=== PATIENT | female | born 1980 | race African-American/Black ===

== ENCOUNTER 2016-07-23 20:16 | Emergency (ER) | payer MEDICAID, MEDICARE, OTHER ==
[~2016-07-23 20:16] MED LIST: Iopamidol 370 76% 100 ML VIAL ONE
[2016-07-23 21:34] LABS: ALT (SGPT) 17 U/L (0-55); AST (SGOT) 18 U/L (5-34); Albumin 4.2 g/dL (3.5-5.0); Alkaline Phosphatase 91 U/L (40-150); Anion Gap 14 mmol/L (10-20); BUN (Urea Nitrogen) 8 mg/dL (7.0-18.7); Bilirubin, Total 0.1 mg/dL (0.2-1.2); CK (CPK) 120 U/L (29-168); Calc. Creatinine Clearance 0 mL/min (70-130); Calcium 9.3 mg/dL (7.8-10.44); Carbon Dioxide 24 mmol/L (22-29); Chloride 107 mmol/L (98-107); Estimated GFR-MDRD Greater than 90; Globulin 3.8 g/dL (2.4-3.5); Glucose 93 mg/dL (70-105); Sodium 141 mmol/L (136-145)
[2016-07-23 22:13] LABS: #Basophils 0.1 thou/uL (0.0-0.2); #Lymphocytes 2.9 thou/uL (1.20-3.40); #Monocytes 0.4 thou/uL (0.11-0.59); #Neutrophils 3.2 thou/uL (1.40-6.50); %Lymphocytes 44.3 % (21.0-51.0); %Monocytes 6.1 % (0.0-10.0); %Neutrophils 48.6 % (42.0-75.0); Hemoglobin 9.6 g/dL (12.0-16.0); Mean Corpuscular Hemoglobin 22.2 pg (27.0-31.0); Mean Corpuscular Volume 71.6 fl (81.0-99.0); Mean Platelet Volume 5.9 fL (7.4-10.4); Platelet Count 266 thou/uL (130-400); RBC Distribution Width 16.6 % (11.5-14.5); Red Blood Cell (RBC) Count 4.32 mill/uL (4.20-5.40); White Blood Cell (WBC) Count 6.6 thou/uL (4.8-10.8)
[2016-07-23] MEDS ORDERED: HYDROcodone/Acetaminophen 5/325 mg Tablet ONE (22:29)
[2016-07-23] MEDS ORDERED: predniSONE 20 MG TAB ONE (22:30)
--- NOTE | 2016-07-23 23:35 | CT ---
CTA CHEST 07/23/16 HISTORY: 35-year-old with history of thymic tumor. Contrast enhanced CTA of the chest is performed. 2D and 3D reconstruction images performed on an [employer] 3D workstation. Images are compared to previous CT of the chest from 10/24/15. Images again demonstrate a left pericardial mass measuring approximately 3.4 x 2.4 cm, not significa ntly changed since the previous exam. Measurements of a pericardial mass. There is a second more superior pericardial mass and hilar mass. This upper hilar mass has increased in size, now measuring 6.8 x 3.9 cm compared to previous measured 5.9 x 3.1 cm. No evidence of fill ing defect seen in the pulmonary arteries to suggest pulmonary emboli. Some mild infracarinal lympha denopathy is again seen also unchanged since the previous exam. IMPRESSION: Left upper hilar and multifocal pericardial masses. The left upper hilar AP window mass is larger th an on the previous exam. The pericardial masses are not significantly changed. All of these are sign ificantly larger than on the previous comparison CT from 12/17/13. POS: [facility]
== END 2016-07-24 00:46 | disposition short-term general hospital (02) ==
LOC: NAV ERS 20:16
DX: R22.2 Localized swelling, mass and lump, trunk (principal); J45.909 Unspecified asthma, uncomplicated; Z87.891 Personal history of nicotine dependence; Z79.891 Long term (current) use of opiate analgesic; Z79.52 Long term (current) use of systemic steroids; Z79.899 Other long term (current) drug therapy
CPT/HCPCS: 71275; 80053; 82550; 85025; 93005; 94760; J7506

== ENCOUNTER 2016-08-13 22:11 | Emergency (ER) | payer MEDICARE, MEDICAID ==
--- NOTE | 2016-08-13 23:00 | RAD ---
AP VIEW OF THE CHEST: 08/13/16 INDICATION: History of thymic cancer and chest pain. IMPRESSION: Left sided mediastinal masses are stable. Sternotomy changes are similar. Right IJ chest wall port i s stable. Right lung is clear. No pleural effusion, or pneumothorax is evident. No acute osseous abn ormality is noted. POS: [facility]
[2016-08-13] MEDS ORDERED: Sodium Chloride 0.9% 1,000 ML ONE (23:04)
[2016-08-13] MEDS ORDERED: Ondansetron HCl/PF 4 MG/2 ML Vial ONE (23:04)
[2016-08-13 23:05] LABS: ALT (SGPT) 12 U/L (0-55); AST (SGOT) 23 U/L (5-34); Albumin 3.7 g/dL (3.5-5.0); Alkaline Phosphatase 155 U/L (40-150); Anion Gap 15 mmol/L (10-20); BUN (Urea Nitrogen) 9 mg/dL (7.0-18.7); Bilirubin, Total 0.1 mg/dL (0.2-1.2); Calc. Creatinine Clearance 0 mL/min (70-130); Calcium 8.7 mg/dL (7.8-10.44); Carbon Dioxide 20 mmol/L (22-29); Chloride 108 mmol/L (98-107); Estimated GFR-MDRD Greater than 90; Globulin 3.4 g/dL (2.4-3.5); Glucose 130 mg/dL (70-105); Potassium 4.1 mmol/L (3.5-5.1); Protein, Total 7.1 g/dL (6.0-8.3); Sodium 139 mmol/L (136-145)
[2016-08-13 23:07] LABS: Troponin I 0.062 ng/mL (< 0.028)
[2016-08-13 23:21] LABS: CKMB 1.4 ng/mL (0-6.6)
[2016-08-13 23:27] LABS: #Basophils 0.1 thou/uL (0.0-0.2); #Lymphocytes 2.2 thou/uL (1.20-3.40); #Neutrophils 8.8 thou/uL (1.40-6.50); %Lymphocytes 17.9 % (21.0-51.0); %Monocytes 8.2 % (0.0-10.0); Hemoglobin 9.4 g/dL (12.0-16.0); Hypochromia MODERATE=16-30 cells (100X) (0-5/hpf); MDiff Complete? YES; Mean Corpuscular HGB CONC 30.4 g/dL (32.0-36.0); Mean Corpuscular Hemoglobin 21.4 pg (27.0-31.0); Mean Corpuscular Volume 70.4 fl (81.0-99.0); Mean Platelet Volume 6.5 fL (7.4-10.4); Microcytosis MODERATE=15-30 cells (100X) (0-5/hpf); PLT Morphology Comment Appears Adequate; Platelet Count 395 thou/uL (130-400); RBC Distribution Width 16.9 % (11.5-14.5); Red Blood Cell (RBC) Count 4.39 mill/uL (4.20-5.40); White Blood Cell (WBC) Count 12.1 thou/uL (4.8-10.8)
[2016-08-14] MEDS ORDERED: Lorazepam 2 MG/ML VIAL ONE
--- NOTE | 2016-08-14 00:02 | CT ---
CTA OF THE THORAX Utilizing IV contrast, PE protocol and 3D reformatted imaging. 08/13/16 COMPARISON: Prior exam dated 07/23/16. FINDINGS: Left sided mediastinal, hilar and pericardial masses are likely stable when accounting for different planes of imaging. The largest is seen within the left aspect of the superior mediastinum measurin g 7.6 x 4.2 cm where it measured 6.8 x 3.9 cm on the prior exam. The lesion along the left heart bor saúl measures 4.7 cm on today's exam whereas it measured 4.8 cm on the prior. Surgical changes of the upper chest are similar. No definite central or segmental pulmonary embolus is evident. No confluen t air space opacity or pleural effusion is noted. There is some subsegmental atelectasis within the right lower lobe. The right chest wall port is stable. No acute osseous abnormality is evident. IMPRESSION: 1. Stable left mediastinal, hilar, and pericardial masses likely related to thymus malignancy. 2. No central or segmental pulmonary embolus. POS: [facility]
[2016-08-14] MEDS ORDERED: Nitroglycerin 2% Ointment 1 INCH/1 GM Packet ONE (00:18)
== END 2016-08-14 01:00 | disposition short-term general hospital (02) ==
LOC: NAV ERS 22:11
DX: R07.9 Chest pain, unspecified (principal); R79.1 Abnormal coagulation profile; J45.909 Unspecified asthma, uncomplicated; Z87.891 Personal history of nicotine dependence; Z79.899 Other long term (current) drug therapy
CPT/HCPCS: 71010; 71275; 80053; 82553; 83880; 84484; 85025; 93005; 96361; 96374; 96375; J2060; J2270; J2405; J7050

== ENCOUNTER 2017-02-12 20:15 | Emergency (ER) | payer MEDICARE, MEDICAID ==
[2017-02-12] MEDS ORDERED: Dexamethasone 20 MG/5 ML VIAL ONE (20:30)
[2017-02-12] MEDS ORDERED: Ketorolac Tromethamine 60 MG/2 ML VIAL ONE (20:30)
[2017-02-12] MEDS ORDERED: Clindamycin 150 MG CAP ONE (20:31)
== END 2017-02-12 21:05 | disposition home or self-care (01) ==
LOC: NAV ERS 20:15
DX: K02.9 Dental caries, unspecified (principal); J45.909 Unspecified asthma, uncomplicated; Z87.891 Personal history of nicotine dependence
CPT/HCPCS: 96372; J1100; J1885

== ENCOUNTER 2017-02-20 14:04 | Emergency (ER) | payer MEDICARE, MEDICAID ==
--- NOTE | 2017-02-20 15:31 | CT ---
CT BRAIN: DATE: 02/20/17. PROVIDED CLINICAL HISTORY: Left-sided facial tingling. FINDINGS: Comparison is made with the study dated 10/08/10. The ventricular system appears normal in size and m orphology. There is no evidence for intracranial hemorrhage or mass effect. The extracranial soft tissues and osseous structures demonstrate an unremarkable CT appearance. [id number] diminished attenuation is seen within the cerebral white matter about the posterior horn of the left lateral ve ntricle potentially on the basis of chronic microvascular ischemic change. IMPRESSION: No evidence for intracranial hemorrhage or mass effect. POS: [facility]
[2017-02-20 16:10] LABS: CKMB 1.9 ng/mL (0-6.6); Troponin I Less than 0.010 ng/mL (< 0.028)
[2017-02-20 16:12] LABS: #Lymphocytes 2.6 thou/uL (1.20-3.40); #Monocytes 0.6 thou/uL (0.11-0.59); #Neutrophils 6.2 thou/uL (1.40-6.50); %Basophils 0.4 % (0.0-1.0); %Lymphocytes 27.8 % (21.0-51.0); %Monocytes 5.9 % (0.0-10.0); %Neutrophils 65.9 % (42.0-75.0); Hemoglobin 10.2 g/dL (12.0-16.0); Mean Corpuscular HGB CONC 29.6 g/dL (32.0-36.0); Mean Corpuscular Hemoglobin 22.7 pg (27.0-31.0); Mean Corpuscular Volume 76.5 fl (81.0-99.0); Mean Platelet Volume 6.9 fL (7.4-10.4); Platelet Count 291 thou/uL (130-400); RBC Distribution Width 16.5 % (11.5-14.5); Red Blood Cell (RBC) Count 4.51 mill/uL (4.20-5.40); White Blood Cell (WBC) Count 9.4 thou/uL (4.8-10.8)
[2017-02-20 16:13] LABS: Hypochromia MODERATE=16-30 cells (100X) (0-5/hpf); MDiff Complete? YES; Ovalocytes SLIGHT = 2-5 cells (100X) (0-1/hpf); PLT Morphology Comment Appears Adequate; Poikilocytosis SLIGHT = 6-15 cells (100X) (0-5/hpf); Tear Drops SLIGHT = 2-5 cells (100X) (0-1/hpf)
[2017-02-20 16:17] LABS: ALT (SGPT) 8 U/L (8-55); AST (SGOT) 10 U/L (5-34); Albumin 3.8 g/dL (3.5-5.0); Alkaline Phosphatase 98 U/L (40-150); Anion Gap 12 mmol/L (10-20); BUN (Urea Nitrogen) 11 mg/dL (7.0-18.7); Bilirubin, Total 0.1 mg/dL (0.2-1.2); Calc. Creatinine Clearance 0 mL/min (70-130); Calcium 8.9 mg/dL (7.8-10.44); Carbon Dioxide 24 mmol/L (22-29); Chloride 107 mmol/L (98-107); Estimated GFR-MDRD Greater than 90; Globulin 3.7 g/dL (2.4-3.5); Glucose 88 mg/dL (70-105); Potassium 3.7 mmol/L (3.5-5.1); Protein, Total 7.5 g/dL (6.0-8.3); Sodium 139 mmol/L (136-145)
== END 2017-02-20 17:42 | disposition home or self-care (01) ==
LOC: NAV ERS 14:04
DX: G43.909 Migraine, unspecified, not intractable, without status migrainosus (principal); J45.909 Unspecified asthma, uncomplicated; D57.1 Sickle-cell disease without crisis; Z87.891 Personal history of nicotine dependence
CPT/HCPCS: 36415; 70450; 80053; 82553; 84484; 85025; 93005

== ENCOUNTER 2017-04-24 08:02 | Emergency (ER) | payer MEDICARE, MEDICAID ==
--- NOTE | 2017-04-24 09:25 | RAD ---
CHEST 2 VIEWS: Date: 04/24/17 COMPARISON: Chest radiograph dated 2012, as well as CT angiogram of chest dated 08/13/16. FINDINGS: Port-A-Cath tip at the cavoatrial junction. There is marked lobular appearance to the middle mediasti num obscuring the aortic knob and left hilum. No pneumothorax. No large effusion. IMPRESSION: Continued left mediastinal masses are similar in size since the comparison examination. No acute intr athoracic abnormality. POS: [facility]
== END 2017-04-24 09:10 | disposition home or self-care (01) ==
LOC: NAV ERS 08:02
DX: J11.1 Influenza due to unidentified influenza virus with other respiratory manifestations (principal); J45.909 Unspecified asthma, uncomplicated; D57.1 Sickle-cell disease without crisis; Z85.238 Personal history of other malignant neoplasm of thymus; Z87.891 Personal history of nicotine dependence; Z79.891 Long term (current) use of opiate analgesic; Z79.899 Other long term (current) drug therapy
CPT/HCPCS: 71020

== ENCOUNTER 2019-03-18 16:59 | Emergency (ER) | payer MEDICARE, MEDICAID ==
[2019-03-18] MEDS ORDERED: Dexamethasone 4 mg/ml Vial ONE (17:30)
[2019-03-18 18:01] LABS: #Lymphocytes 0.7 thou/uL (1.20-3.40); #Monocytes 0.3 thou/uL (0.11-0.59); #Neutrophils 15.4 thou/uL (1.40-6.50); %Basophils 0.2 % (0.0-1.0); %Lymphocytes 4.2 % (21.0-51.0); %Monocytes 1.6 % (0.0-10.0); Mean Corpuscular HGB CONC 29.9 g/dL (32.0-36.0); Mean Corpuscular Hemoglobin 24.4 pg (27.0-31.0); Mean Corpuscular Volume 81.7 fL (78.0-98.0); Platelet Count 485 thou/uL (130-400); RBC Distribution Width 14.9 % (11.5-14.5); White Blood Cell (WBC) Count 16.4 thou/uL (4.8-10.8)
[2019-03-18 18:15] LABS: Anion Gap 14 mmol/L (10-20); BUN (Urea Nitrogen) 10 mg/dL (7.0-18.7); Calc. Creatinine Clearance 0 mL/min (70-130); Calcium 9.7 mg/dL (7.8-10.44); Carbon Dioxide 24 mmol/L (22-29); Chloride 104 mmol/L (98-107); Estimated GFR-MDRD Greater than 90; Glucose 122 mg/dL (70-105); Potassium 4.1 mmol/L (3.5-5.1); Sodium 138 mmol/L (136-145)
--- NOTE | 2019-03-18 18:34 | RAD ---
CHEST ONE VIEW: 03/18/19 COMPARISON: 08/13/16, 04/24/17. HISTORY: Dyspnea. FINDINGS: Complete opacification of the left hemithorax. Hyperinflation of the right lung. Right sided Mediport catheter is noted. Sternotomy wires identified. IMPRESSION: Complete opacification of the left hemithorax. Further evaluation with chest CT is recommended. Resul ts of the study conveyed to Dr. Conn, 03/18/19 at 6:29 p.m. Code CR POS: [facility]
== END 2019-03-18 18:45 | disposition home or self-care (01) ==
LOC: NAV ERS 16:59
DX: G70.00 Myasthenia gravis without (acute) exacerbation (principal); J45.909 Unspecified asthma, uncomplicated; Z85.238 Personal history of other malignant neoplasm of thymus
CPT/HCPCS: 71045; 80048; 85025; J1100

== ENCOUNTER 2019-03-24 21:03 | Emergency (ER) | payer MEDICARE, MEDICAID ==
--- NOTE | 2019-03-24 21:50 | RAD ---
EXAM: Chest one view: HISTORY: Cough, congestion, shortness of breath COMPARISON: 03/18/2019 FINDINGS: Again noted is essentially complete opacification of the left chest. Heart size: Appears enlarged although is difficult to assess because of the large pleural effusion. Stable right subclavian catheter injection port. Lungs: Clear of acute process. No confluent pneumonia. Stable exam. IMPRESSION: No significant new process.
[2019-03-24 21:54] LABS: Anisocytosis SLIGHT = 6-15 cells (100X) (0-5/hpf); Band 1 % (5-11); Eosinophils 1 % (0-10); Hemoglobin 10.2 g/dL (12.0-16.0); Lymphocytes 13 % (21-51); MDiff Complete? YES; Mean Corpuscular HGB CONC 29.9 g/dL (32.0-36.0); Mean Corpuscular Hemoglobin 24.4 pg (27.0-31.0); Mean Corpuscular Volume 81.6 fL (78.0-98.0); Mean Platelet Volume 6.5 fL (7.4-10.4); Microcytosis SLIGHT = 6-15 cells (100X) (0-5/hpf); Neutrophil 85 % (42-75); Ovalocytes SLIGHT = 2-5 cells (100X) (0-1/hpf); Platelet Count 430 thou/uL (130-400); Platelet Morphology Comment Appears Adequate; RBC Distribution Width 15.6 % (11.5-14.5); Red Blood Cell (RBC) Count 4.17 mill/uL (4.20-5.40); White Blood Cell (WBC) Count 17.4 thou/uL (4.8-10.8)
[2019-03-24 21:55] LABS: ALT (SGPT) 13 U/L (8-55); AST (SGOT) 13 U/L (5-34); Albumin 3.8 g/dL (3.5-5.0); Alkaline Phosphatase 70 U/L (40-110); Anion Gap 15 mmol/L (10-20); BUN (Urea Nitrogen) 11 mg/dL (7.0-18.7); Bilirubin, Total 0.2 mg/dL (0.2-1.2); CK (CPK) 139 U/L (29-168); Calc. Creatinine Clearance 0 mL/min (70-130); Calcium 9.4 mg/dL (7.8-10.44); Carbon Dioxide 24 mmol/L (22-29); Chloride 104 mmol/L (98-107); Estimated GFR-MDRD Greater than 90; Globulin 3.4 g/dL (2.4-3.5); Glucose 99 mg/dL (70-105); Potassium 4.1 mmol/L (3.5-5.1); Protein, Total 7.2 g/dL (6.0-8.3); Sodium 139 mmol/L (136-145)
[2019-03-24] MEDS ORDERED: Azithromycin 250 MG TAB ONE (23:21)
[2019-03-24 23:23] LABS: Bilirubin Negative (Negative); Blood, Urine Trace (Negative); Clarity Clear (Clear); Glucose, Urine (Dipstick) Negative (Negative); Leukocyte Negative (Negative); Nitrite Negative (Negative); Protein, Urine (Dipstick) Negative (Neg-Trace); Urobilinogen 0.2 mg/dL (Less than 2)
[2019-03-24 23:25] LABS: Bacteria/HPF None Seen HPF (None Seen); RBC/HPF 0-3 HPF (0-3); Squamous Epithelial 0-3 HPF (0-3); WBC/HPF None Seen HPF (0-3)
== END 2019-03-25 00:07 | disposition home or self-care (01) ==
LOC: NAV ERS 21:03
DX: J45.909 Unspecified asthma, uncomplicated (principal); G70.00 Myasthenia gravis without (acute) exacerbation; J32.9 Chronic sinusitis, unspecified; B96.89 Other specified bacterial agents as the cause of diseases classified elsewhere; C37 Malignant neoplasm of thymus; D57.1 Sickle-cell disease without crisis; F41.9 Anxiety disorder, unspecified; Z79.899 Other long term (current) drug therapy; Z79.52 Long term (current) use of systemic steroids
CPT/HCPCS: 36415; 71045; 80053; 81003; 81015; 82550; 83605; 83880; 84484; 85025; 87040; 87804; 93005; 94640; 94760; J7620

== ENCOUNTER 2019-04-24 19:27 | Emergency (ER) | payer MEDICARE, OTHER ==
--- NOTE | 2019-04-24 20:28 | RAD ---
CHEST TWO VIEWS: 04/24/19 HISTORY: Dyspnea. COMPARISON: 03/24/19 study. Post left sided pneumonectomy changes are noted. Post sternotomy changes are present. A right Medipor t catheter is in place. IMPRESSION: Stable chest. POS: [facility]
[2019-04-24 20:38] LABS: Hemoglobin 10.2 g/dL (12.0-16.0); Mean Corpuscular HGB CONC 29.3 g/dL (32.0-36.0); Mean Corpuscular Hemoglobin 23.7 pg (27.0-31.0); Mean Corpuscular Volume 80.9 fL (78.0-98.0); Mean Platelet Volume 6.5 fL (7.4-10.4); Platelet Count 389 thou/uL (130-400); RBC Distribution Width 16.9 % (11.5-14.5)
[2019-04-24 20:40] LABS: #Lymphocytes 1.3 thou/uL (1.20-3.40); #Monocytes 0.5 thou/uL (0.11-0.59); #Neutrophils 8.2 thou/uL (1.40-6.50); %Basophils 0.3 % (0.0-1.0); %Lymphocytes 13.1 % (21.0-51.0); %Monocytes 4.6 % (0.0-10.0)
[2019-04-24 20:48] LABS: ALT (SGPT) 16 U/L (8-55); AST (SGOT) 14 U/L (5-34); Albumin 3.8 g/dL (3.5-5.0); Alkaline Phosphatase 101 U/L (40-110); Anion Gap 16 mmol/L (10-20); BUN (Urea Nitrogen) 11 mg/dL (7.0-18.7); Bilirubin, Total 0.1 mg/dL (0.2-1.2); Calc. Creatinine Clearance 0 mL/min (70-130); Calcium 8.9 mg/dL (7.8-10.44); Carbon Dioxide 21 mmol/L (22-29); Chloride 109 mmol/L (98-107); Estimated GFR-MDRD Greater than 90; Globulin 3.1 g/dL (2.4-3.5); Glucose 143 mg/dL (70-105); Potassium 3.6 mmol/L (3.5-5.1); Protein, Total 6.9 g/dL (6.0-8.3); Sodium 142 mmol/L (136-145)
== END 2019-04-24 21:30 | disposition home or self-care (01) ==
LOC: NAV ERS 19:27
DX: J06.9 Acute upper respiratory infection, unspecified (principal); F41.9 Anxiety disorder, unspecified; J45.909 Unspecified asthma, uncomplicated; G70.00 Myasthenia gravis without (acute) exacerbation; D57.3 Sickle-cell trait; Z85.238 Personal history of other malignant neoplasm of thymus; Z79.51 Long term (current) use of inhaled steroids; Z79.899 Other long term (current) drug therapy
CPT/HCPCS: 71046; 80053; 85025; 87804; 94640; J7620

== ENCOUNTER 2019-05-20 03:29 | Emergency (ER) | payer MEDICARE, OTHER ==
[2019-05-20 04:07] LABS: #Lymphocytes 2.3 thou/uL (1.20-3.40); #Monocytes 0.5 thou/uL (0.11-0.59); %Basophils 0.3 % (0.0-1.0); %Eosinophils 0.1 % (0.0-10.0); %Lymphocytes 23.4 % (21.0-51.0); %Monocytes 5.4 % (0.0-10.0); %Neutrophils 70.7 % (42.0-75.0); Hemoglobin 8.5 g/dL (12.0-16.0); Hypochromia SLIGHT = 6-15 cells (100X) (0-5/hpf); MDiff Complete? YES; Mean Corpuscular HGB CONC 29.4 g/dL (32.0-36.0); Mean Corpuscular Hemoglobin 23.1 pg (27.0-31.0); Mean Corpuscular Volume 78.5 fL (78.0-98.0); Mean Platelet Volume 6.6 fL (7.4-10.4); Ovalocytes SLIGHT = 2-5 cells (100X) (0-1/hpf); Platelet Count 379 thou/uL (130-400); Platelet Morphology Comment Appears Adequate; RBC Distribution Width 17.2 % (11.5-14.5); Red Blood Cell (RBC) Count 3.67 mill/uL (4.20-5.40); White Blood Cell (WBC) Count 9.9 thou/uL (4.8-10.8)
[2019-05-20 04:15] LABS: ALT (SGPT) 18 U/L (8-55); AST (SGOT) 14 U/L (5-34); Albumin 3.6 g/dL (3.5-5.0); Alkaline Phosphatase 103 U/L (40-110); Anion Gap 13 mmol/L (10-20); BUN (Urea Nitrogen) 10 mg/dL (7.0-18.7); Bilirubin, Total 0.1 mg/dL (0.2-1.2); CK (CPK) 163 U/L (29-168); Calc. Creatinine Clearance 0 mL/min (70-130); Calcium 8.4 mg/dL (7.8-10.44); Carbon Dioxide 26 mmol/L (22-29); Chloride 105 mmol/L (98-107); Estimated GFR-MDRD Greater than 90; Globulin 2.9 g/dL (2.4-3.5); Glucose 86 mg/dL (70-105); Potassium 3.9 mmol/L (3.5-5.1); Protein, Total 6.5 g/dL (6.0-8.3); Sodium 140 mmol/L (136-145)
[2019-05-20] MEDS ORDERED: Morphine 4 MG/ML VIAL ONE (04:20)
[2019-05-20] MEDS ORDERED: Ondansetron PF 4 MG/2 ML Vial ONE (04:20)
[2019-05-20] MEDS ORDERED: Aspirin Chewable 81 MG TAB ONE (04:20)
[2019-05-20] MEDS ORDERED: Sodium Chloride 0.9% 1,000 ML ONE (04:20)
--- NOTE | 2019-05-20 07:41 | RAD ---
EXAM: Single view of the chest HISTORY: Lung cancer status post left pneumonectomy COMPARISON: 03/24/2019 FINDINGS: Single view of the chest shows a normal sized cardiomediastinal silhouette. There is comple te opacification of the left thorax from prior pneumonectomy. The patient is status post sternotomy. The Mediport is unchanged in position. The bones are unremarkable. IMPRESSION: Stable exam
--- NOTE | 2019-05-20 07:44 | CT ---
PRELIMINARY REPORT/[facility]/EMERGENCY AFTER HOURS PROCEDURE EXAM: CTA Chest with Intravenous Contrast CLINICAL HISTORY: SHORT OF BREATH; LEFT LUNG REMOVED AUGUST 2018 TECHNIQUE: Axial CTA images of the chest with intravenous contrast. MIP reconstructed images were created and re viewed. CONTRAST: With; ISOVUE 370 COMPARISON: CR\SR - XR CHEST 1 VIEW PORTABLE - 03/24/2019 09:02 PM PAPER SAMPLE CLERK FINDINGS: PULMONARY ARTERIES There is adequate opacification of pulmonary arteries to the right hemithorax. There is no pneumothor ax. AORTA No thoracic aortic aneurysm or dissection. LUNGS Right hemithorax is within normal limits. There is complete left pneumonectomy. Within the left thora cic cavity is prominence of the pleura and small residual pleural effusion. PLEURAL SPACES No pleural effusion. No pneumothorax. HEART AND MEDIASTINUM No cardiomegaly. No significant pericardial effusion. LYMPH NODES No lymphadenopathy. BONES Median sternotomy wires are present. CHEST WALL AND UPPER ABDOMEN Images through the upper abdomen are unremarkable. The chest wall is unremarkable. MISCELLANEOUS: MediPort catheter is present. Patient's medical history is not disclosed. IMPRESSION: Left pneumonectomy with postsurgical changes. No PE to the Right hemithorax. ELECTRONICALLY SIGNED BY: Karin Cheema MD May 20, 2019 6:54:10 AM PAPER SAMPLE CLERK This report is intended for review by the ordering physician only, in accordance of law. If you recei ve this report in error, please call [facility] at [phone]. FINAL REPORT CT PULMONARY ANGIOGRAM WITH IV CONTRAST AND 3-D POSTPROCESSING: I agree with the report given by Dr. Karin Cheema of [facility]. Transcribed Date/Time: 05/20/2019 7:50 AM
== END 2019-05-20 06:34 | disposition home or self-care (01) ==
LOC: NAV ERS 03:29
DX: E27.9 Disorder of adrenal gland, unspecified (principal); R94.31 Abnormal electrocardiogram [ECG] [EKG]; R91.8 Other nonspecific abnormal finding of lung field; J45.909 Unspecified asthma, uncomplicated; F41.9 Anxiety disorder, unspecified; Z79.899 Other long term (current) drug therapy; Z79.51 Long term (current) use of inhaled steroids
CPT/HCPCS: 71045; 71275; 80053; 82550; 83880; 84484; 85025; 85379; 93005; 94760; 96361; 96374; 96375; J2270; J2405; J7050

== ENCOUNTER 2019-10-16 08:08 | Emergency (ER) | payer MEDICARE, OTHER ==
[2019-10-16] MEDS ORDERED: Aspirin Chewable 81 MG TAB ONE (08:30)
[2019-10-16] MEDS ORDERED: Morphine 4 MG/ML VIAL ONE (08:30)
[2019-10-16] MEDS ORDERED: Ondansetron PF 4 MG/2 ML Vial ONE (08:38)
[2019-10-16 08:51] LABS: INR-International Normal Ratio 1.1; PTT 29.4 sec (22.9-36.1); Prothrombin Time 14.1 sec (12.0-14.7)
[2019-10-16 08:58] LABS: #Basophils 0.1 thou/uL (0.0-0.2); #Lymphocytes 2.5 thou/uL (1.20-3.40); #Neutrophils 13.3 thou/uL (1.40-6.50); %Basophils 0.5 % (0.0-1.0); %Lymphocytes 14.8 % (21.0-51.0); %Monocytes 6.1 % (0.0-10.0); %Neutrophils 78.6 % (42.0-75.0); Hemoglobin 11.2 g/dL (12.0-16.0); Mean Corpuscular HGB CONC 28.9 g/dL (32.0-36.0); Mean Corpuscular Hemoglobin 22.7 pg (27.0-31.0); Mean Corpuscular Volume 78.7 fL (78.0-98.0); Mean Platelet Volume 8.3 fL (7.4-10.4); Platelet Count 356 thou/uL (130-400); RBC Distribution Width 23.1 % (11.5-14.5); Red Blood Cell (RBC) Count 4.95 mill/uL (4.20-5.40)
[2019-10-16] MEDS ORDERED: Iopamidol 370 76% 100 ML VIAL ONE (09:00)
[2019-10-16 09:07] LABS: ALT (SGPT) 29 U/L (8-55); AST (SGOT) 15 U/L (5-34); Albumin 3.3 g/dL (3.5-5.0); Alkaline Phosphatase 78 U/L (40-110); Anion Gap 17 mmol/L (10-20); BUN (Urea Nitrogen) 7 mg/dL (7.0-18.7); Bilirubin, Total 0.4 mg/dL (0.2-1.2); CK (CPK) 42 U/L (29-168); Calc. Creatinine Clearance 0 mL/min (70-130); Calcium 8.4 mg/dL (7.8-10.44); Carbon Dioxide 27 mmol/L (22-29); Chloride 99 mmol/L (98-107); Estimated GFR-MDRD Greater than 90; Globulin 2.8 g/dL (2.4-3.5); Glucose 84 mg/dL (70-105); Potassium 3.6 mmol/L (3.5-5.1); Protein, Total 6.1 g/dL (6.0-8.3); Sodium 139 mmol/L (136-145)
[2019-10-16 09:09] LABS: Anisocytosis SLIGHT = 6-15 cells (100X) (0-5/hpf); MDiff Complete? YES; RBC Morphology Normal
--- NOTE | 2019-10-16 09:13 | RAD ---
CHEST 1 VIEW: HISTORY: Chest pain. COMPARISON: 05/20/2019. FINDINGS: Postop midline sternotomy. Stable-appearing cardiomegaly and complete opacification of the left colleen thorax. Right central line and injection port. Stable-appearing right chest. IMPRESSION: Stable-appearing chest. Complete opacification of the left hemithorax with some volume loss unchange d from 05/10/2019. No new process. POS: [facility]
--- NOTE | 2019-10-16 10:13 | CT ---
CT ANGIOGRAM CHEST WITH 3D RENDERING: HISTORY: Chest pain. COMPARISON: 05/20/2019. FINDINGS: Status post left pneumonectomy. No evidence for embolism involving the main pulmonary artery or righ t pulmonary artery branches. Minimal hiatal hernia with some fluid in the distal. Minimal hiatal he rnia with some fluid in the distal esophagus, evidence for some reflux. No evidence for a pericardia l pleural effusion. Possible very minute ground-glass opacity changes in the posterior right lung ba se, possibly minimal under aeration. No mediastinal mass or adenopathy. IMPRESSION: No CT angiogram evidence for acute pulmonary embolism. Status post left pneumonectomy. No significant acute process. POS: [facility]
== END 2019-10-16 11:10 | disposition home or self-care (01) ==
LOC: NAV ERS 08:08
DX: R07.89 Other chest pain (principal); J45.909 Unspecified asthma, uncomplicated; F41.9 Anxiety disorder, unspecified; G70.00 Myasthenia gravis without (acute) exacerbation; D57.00 Hb-SS disease with crisis, unspecified; Z79.899 Other long term (current) drug therapy
CPT/HCPCS: 71045; 71275; 80053; 82550; 84484; 85025; 85379; 85610; 85730; 93005; 94640; 94760; 96374; 96375; J2270; J2405; J7620; Q9967

== ENCOUNTER 2020-09-18 12:11 | Emergency (ER) | payer MEDICARE ==
[2020-09-18 21:46] LABS: SARS-CoV-2 PCR by NAA Not Detected (NotDetected)
== END 2020-09-18 14:50 | disposition expired ==
LOC: NAV ERS 12:11
DX: I46.9 Cardiac arrest, cause unspecified (principal); Z20.822 Contact with and (suspected) exposure to COVID-19
CPT/HCPCS: U0003; U0005; 87635; 92950